=== PATIENT | male | born 1970 | race Caucasian/White ===

== ENCOUNTER 2018-10-26 19:35 | Inpatient (IN) ==
[2018-10-27] MEDS ORDERED: FUROSEMIDE 100 MG/10 ML VIAL IV STA (00:49)
[2018-10-27] MEDS ORDERED: hydrALAZINE 20 MG/1 ML VIAL IV STA (00:50)
[2018-10-27] MEDS ORDERED: ENALAPRIL 2.5 MG/2 ML VIAL IV STA (00:53)
[2018-10-27 01:53] LABS: Basophils # 0.1 10*3/uL (0.0-0.2); Eosinophils # 0.2 10*3/uL (0.0-0.87); Eosinophils % 2.8 % (0.00-10.9); Hematocrit 38.3 VOL% (42.0-52.0); Hemoglobin 13.3 GM/DL (14.0-18.0); Immature Granulocytes % 0.2 %; Immature Granulocytes Absolute 0.02 #; Lymphocytes % 35.9 % (21.2-54.2); Mean Corpuscular HGB Conc 34.7 GM/DL (32-36); Mean Corpuscular Hemoglobin 30 PG (27-34); Mean Platelet Volume 9.2 FL (9.6-12.0); Monocytes # 0.6 10*3/uL (0.11-0.8); Monocytes % 6.6 % (1.7-12.7); Neutrophils # 4.4 10*3/uL (1.4-7.4); Neutrophils % 53.5 % (38.7-73.9); Platelet Count 287 T/CUMM (130-400); Red Cell Distribution Width 12.8 % (9.3-17.3); White Blood Count 8.3 T/CUMM (4-12)
[2018-10-27 02:13] LABS: Albumin 3.7 G/DL (3.4-5.0); Bilirubin,Total 3.6 MG/DL (0.2-1.0); Calcium 8.9 MG/DL (8.5-10.1); Osmolality,Calculated 281.3 MOS/KG (273-304); Potassium 3.8 MMOL/L (3.5-5.1); Total Protein 7.6 G/DL (6.4-8.3)
[2018-10-27 02:48] LABS: Apearance,Urine CLEAR (Clear); Bilirubin,Urine Negative (Negative); Blood, Urine Negative (Negative); Glucose,Urine (UA) Negative (Negative); Ketones,Urine Negative (Negative); Mucus,Urine Occasional /LPF (Occasional); Nitrite,Urine Negative (Negative); Protein,Urine 30 MG/DL; RBC,Urine 1 /HPF (0-4); Urine Color Amber (Yellow); Urine Specific Gravity 1.011 (1.001-1.035); WBC,Urine <1 /HPF (0-6)
[2018-10-27] MEDS ORDERED: MAGNESIUM SULF RIDER 2 GM in PREMIX 1 EACH IV PRN (04:21)
[2018-10-27] MEDS ORDERED: ACETAMINOPHEN 325 MG TABLET PO PRN (04:21)
[2018-10-27] MEDS ORDERED: hydrALAZINE 20 MG/1 ML VIAL IV PRN (04:21)
[2018-10-27] MEDS ORDERED: ONDANSETRON 4 MG/2 ML VIAL IV PRN (04:21)
[2018-10-27] MEDS ORDERED: MAGNESIUM SULF RIDER 4 GM in PREMIX 1 EACH IV PRN (04:21)
[2018-10-27] MEDS ORDERED: INFLUENZA VIRUS VACCINE 0.5 ML SYRINGE IM ONE (06:42)
[2018-10-27] MEDS: ALBUTEROL/IPRATROPIUM 3 ML NEB RESP TX SCH ×3 (08:12→19:52)
[2018-10-27] MEDS: ASPIRIN CHEW 81 MG TABLET PO SCH (08:46)
[2018-10-27] MEDS: FUROSEMIDE 40 MG/4 ML VIAL IV SCH ×2 (08:47→17:04)
[2018-10-27] MEDS: PANTOPRAZOLE 40 MG TABLET PO SCH (08:47)
[2018-10-27] MEDS ORDERED: ENOXAPARIN 40 MG/0.4 ML SYRINGE SUBCUT SCH (09:00)
[2018-10-27 11:30] LABS: Albumin 3.4 G/DL (3.4-5.0); Bilirubin,Total 2.9 MG/DL (0.2-1.0); Calcium 8.6 MG/DL (8.5-10.1); Osmolality,Calculated 282.3 MOS/KG (273-304); Potassium 3.6 MMOL/L (3.5-5.1); Risk Ratio 5.19; Total Protein 7.2 G/DL (6.4-8.3)
[2018-10-28] MEDS: ALBUTEROL/IPRATROPIUM 3 ML NEB RESP TX SCH ×4 (01:23→19:55)
[2018-10-28 08:31] LABS: Calcium 8.7 MG/DL (8.5-10.1); Osmolality,Calculated 281.4 MOS/KG (273-304); Potassium 3.6 MMOL/L (3.5-5.1)
[2018-10-28] MEDS: ASPIRIN CHEW 81 MG TABLET PO SCH (09:20)
[2018-10-28] MEDS: PANTOPRAZOLE 40 MG TABLET PO SCH (09:20)
[2018-10-28] MEDS: FUROSEMIDE 40 MG/4 ML VIAL IV SCH (09:20)
[2018-10-28] MEDS ORDERED: CARVEDILOL 6.25 MG TABLET PO SCH (13:30)
[2018-10-28] MEDS: hydroCHLOROthiazide 12.5 MG CAPSULE PO SCH (13:34)
[2018-10-28] MEDS: amLODIPine 5 MG TABLET PO SCH (13:34)
[2018-10-28] MEDS ORDERED: CARVEDILOL 12.5 MG TABLET PO SCH (17:00)
[2018-10-28] MEDS: CARVEDILOL 12.5 MG TABLET PO SCH (20:34)
[2018-10-29] MEDS: ALBUTEROL/IPRATROPIUM 3 ML NEB RESP TX SCH ×3 (01:39→12:02)
[2018-10-29] MEDS: PANTOPRAZOLE 40 MG TABLET PO SCH (09:30)
[2018-10-29] MEDS: CARVEDILOL 12.5 MG TABLET PO SCH (09:30)
[2018-10-29] MEDS: hydroCHLOROthiazide 12.5 MG CAPSULE PO SCH (09:30)
[2018-10-29] MEDS: amLODIPine 5 MG TABLET PO SCH (09:30)
[2018-10-29] MEDS: ASPIRIN CHEW 81 MG TABLET PO SCH (09:30)
[2018-10-29 13:03] VITALS: BP 139/89
== END 2018-10-29 15:10 | disposition home or self-care (01) | DRG 305 ==
LOC: N.ED 19:35 → N.EDINP 10-27 04:26 → N.TELES 10-27 04:35
PROVIDERS: ADMIT Internal Medicine; ATTEND Internal Medicine